=== PATIENT | female | born 1990 | race Caucasian/White ===

== ENCOUNTER 2017-10-24 10:37 | Emergency (ER) | payer OTHER ==
--- NOTE | 2017-10-24 11:52 | EDM.PDOC ---
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 She does wear reinforced shoes per [employer] policy. There is some residual pain and stiffness with walking. She has taken no meds. Treatments INSURANCE VERIFICATION SPECIALIST: Reports: Cold Therapy R foot Pain Score (Numeric/FACES): 6 - Related Data Allergies Allergy/AdvReac Type Severity Reaction Status Date / Time No Known Allergies Allergy Verified 10/24/17 11:10 Home Meds: Home Meds Ethynodiol D-Ethinyl Estradiol [Zovia 1-35E Tablet] 1 tab ASDIRECTED 10/24/17 [ History] buPROPion [Wellbutrin] 300 mg PO DAILY 10/24/17 [History] Past Medical History - Past Health History Medical/Surgical History: Denies Medical/Surgical History Social & Family History - Family History Family Medical History: Noncontributory Review of Systems - Review of Systems Review Of Systems: ROS reveals no pertinent complaints other than HPI. ED EXAM, GENERAL - Physical Exam Exam: See Below Exam Limited By: No Limitations General Appearance: Alert, WD/WN, No Apparent Distress, Obese Head: Atraumatic, Normocephalic Neck: Normal Inspection, Supple, Non-Tender, Full Range of Motion Respiratory/Chest: Lungs Clear Cardiovascular: Regular Rate, Rhythm Back Exam: Normal Inspection Extremities: Limited Range of Motion (L foot: tender midfoot without swelling or ecchymoses; no deformity of forefoot or hindfoot) Neurological: Alert, Oriented, CN II-XII Intact, No Motor/Sensory Deficits Psychiatric: Normal Affect, Normal Mood Skin Exam: Dry, Intact, Normal Color Lymphatic: No Adenopathy Course - Vital Signs Text/Narrative:: I reviewed x rays of L foot, no fx seen. No meds dispensed, WC forms completed. Last Recorded V/S: Last Vital Signs Temp 36.9 C 10/24/17 10:57 Pulse 69 10/24/17 10:57 Resp 18 10/24/17 10:57 BP 116/90 10/24/17 10:57 Pulse Ox 100 10/24/17 10:57 - Orders/Labs/Meds Orders: Active Orders 24 hr Category Date Time Status Foot Comp Min 3V Rt [CR] Stat Exams 10/24/17 11:11 Taken Departure - Departure Time of Disposition: 11:51 Disposition: Home, Self-Care 01 Condition: Fair Clinical Impression: Contusion of left foot, initial encounter - Discharge Information *PRESCRIPTION DRUG MONITORING PROGRAM REVIEWED*: Not Applicable *COPY OF PRESCRIPTION DRUG MONITORING REPORT IN PATIENT SARAH: Not Applicable Referrals: Michelle Garcia [employer] [Primary Care Provider] - - Problem List & Annotations (1) Contusion of left foot, initial encounter SNOMED Code(s): 64412035, [id number] Code(s): S90.32XA - CONTUSION OF LEFT FOOT, INITIAL ENCOUNTER Status: Acute Current Visit: Yes Annotation/Comment:: I suggested RTW, restrictions outlined for the next 48 hrs, NSAIDs for pain. - Problem List Review Problem List Initiated/Reviewed/Updated: Yes - My Orders Last 24 Hours: My Active Orders 10/24/17 11:11 Foot Comp Min 3V Rt [CR] Stat - Assessment/Plan Last 24 Hours: My Active Orders 10/24/17 11:11 Foot Comp Min 3V Rt [CR] Stat Plan: Follow up with PCP if needed.
[2017-10-24 12:10] VITALS: BP 121/74
--- NOTE | 2017-10-28 09:24 | CR ---
INDICATION: Dropped 40 pounds of steel onto right midfoot, Workers [employer]. RIGHT FOOT: Three views of the right foot revealed what appears to be an irregular transverse healing fracture site at the proximal metaphysis of the 5th metatarsal. Periosteal new bone formation is noted, compatible with a healing fracture site in almost anatomic position and alignment. A new acute fracture, dislocation, or other acute bone or joint abnormality was not identified. There is noted a small plantar calcaneal spur. IMPRESSION: 1. Healing fracture site - subacute fracture at the proximal phalanx, shaft area, of the 5th right toe. 2. Small plantar calcaneal spur. [facility]
== END 2017-10-24 11:54 | disposition home or self-care (01) ==
LOC: FB.ED 10:37
DX: S90.32XA Contusion of left foot, initial encounter (principal); W20.8XXA Other cause of strike by thrown, projected or falling object, initial encounter
CPT/HCPCS: 73630-RT; 99000; 99283

== ENCOUNTER 2021-11-23 16:08 | Emergency (ER) | payer BC, OTHER ==
[2021-11-23] MEDS ORDERED: Lidocaine 1% with EPINEPHrine 1:100,000 20 ML MDV INFILT ONE (16:09)
[2021-11-23] MEDS ORDERED: Bacitracin Oint 1 GM U/D Packet TOP ONE (16:39)
[2021-11-23 17:22] VITALS: BP 125/85; PULSE 100
== END 2021-11-23 17:03 | disposition home or self-care (01) ==
LOC: FB.ED 16:08
DX: S51.811A Laceration without foreign body of right forearm, initial encounter (principal); E66.9 Obesity, unspecified; Z68.30 Body mass index [BMI] 30.0-30.9, adult; W26.8XXA Contact with other sharp object(s), not elsewhere classified, initial encounter; Y99.0 Civilian activity done for income or pay
CPT/HCPCS: 12001; 99282